=== PATIENT | female | born 1940 | race Two or more races ===

== ENCOUNTER 2017-07-01 08:57 | Outpatient (CLI) | payer OTHER ==
[~2017-07-01 08:57] MED LIST: CATAFLAM50 MG PO; DIOVAN160 M1 PO; KETO10TA2 PO; NAPR500T14 PO; NO RECUERDA; ORPH100T PO; PROCTOCREAM-HC30 GM RC; SYNTHROID50 MCG; ZOCOR20 MG PO; [UNRECOGNIZED DRUG - OTHER] PO
== END 2017-07-01 09:01 | disposition home or self-care (01) ==
LOC: MAMO-SONO 08:57
DX: Z12.31 Encounter for screening mammogram for malignant neoplasm of breast (principal); Z87.898 Personal history of other specified conditions; N60.11 Diffuse cystic mastopathy of right breast; N60.12 Diffuse cystic mastopathy of left breast; D49.3 Neoplasm of unspecified behavior of breast
CPT/HCPCS: 76641; G0202

== ENCOUNTER 2017-07-29 12:18 | Outpatient (CLI) | payer OTHER | END 2017-07-29 12:33 | disposition home or self-care (01) | LOC: SONOGRAMA 12:18 | DX: N63.11 Unspecified lump in the right breast, upper outer quadrant (principal) ==

== ENCOUNTER 2018-07-01 09:27 | Outpatient (CLI) | payer OTHER | END 2018-07-01 09:29 | disposition home or self-care (01) | LOC: MAMO-SONO 09:27 | DX: Z12.31 Encounter for screening mammogram for malignant neoplasm of breast (principal); Z87.898 Personal history of other specified conditions; D49.3 Neoplasm of unspecified behavior of breast; D48.61 Neoplasm of uncertain behavior of right breast; E04.1 Nontoxic single thyroid nodule; N60.11 Diffuse cystic mastopathy of right breast; N60.12 Diffuse cystic mastopathy of left breast ==

== ENCOUNTER 2018-08-21 07:30 | Outpatient (CLI) | payer OTHER | END 2018-08-21 07:31 | disposition home or self-care (01) | LOC: SONOGRAMA 07:30 | DX: E04.2 Nontoxic multinodular goiter (principal) ==

== ENCOUNTER 2018-11-07 10:29 | Outpatient (CLI) | payer OTHER | END 2018-11-07 10:48 | disposition home or self-care (01) | LOC: MRI 10:29 | DX: M51.27 Other intervertebral disc displacement, lumbosacral region (principal) | CPT/HCPCS: 72148 ==

== ENCOUNTER 2018-11-19 10:31 | Outpatient (CLI) | payer OTHER | END 2018-11-19 10:40 | disposition home or self-care (01) | LOC: NUCLEAR 10:31 | DX: M81.0 Age-related osteoporosis without current pathological fracture (principal) ==

== ENCOUNTER → 2019-03-31 10:31 | Outpatient (CLI) | payer OTHER | END | disposition home or self-care (01) | LOC: LAB 10:31 | DX: N20.0 Calculus of kidney (principal) ==

== ENCOUNTER 2019-04-03 12:38 | Outpatient (CLI) | payer OTHER | END 2019-04-03 12:42 | disposition home or self-care (01) | LOC: MRI 12:38 | DX: M51.36 Other intervertebral disc degeneration, lumbar region (principal); M25.551 Pain in right hip | CPT/HCPCS: 73722 ==

== ENCOUNTER 2019-06-10 09:25 | Outpatient (CLI) | payer OTHER | END 2019-06-10 09:41 | disposition home or self-care (01) | LOC: MRI 09:25 | DX: M25.562 Pain in left knee (principal); M25.561 Pain in right knee | CPT/HCPCS: 73721 ==

== ENCOUNTER → 2019-06-16 08:49 | Outpatient (CLI) | payer OTHER | END | disposition home or self-care (01) | LOC: LAB 08:49 → RAD 08:49 | DX: D68.8 Other specified coagulation defects (principal); E78.2 Mixed hyperlipidemia; N39.0 Urinary tract infection, site not specified; R07.89 Other chest pain; I10 Essential (primary) hypertension ==

== ENCOUNTER 2019-09-03 09:11 | Outpatient (CLI) | payer OTHER | END 2019-09-03 15:00 | disposition home or self-care (01) | LOC: LAB 09:11 → RAD 09:11 → LAB 09:20 | DX: D68.8 Other specified coagulation defects (principal); E78.2 Mixed hyperlipidemia; N39.0 Urinary tract infection, site not specified; R07.89 Other chest pain; I10 Essential (primary) hypertension ==

== ENCOUNTER 2019-09-03 10:03 | Inpatient (IN) | payer OTHER ==
[~2019-09-03] VITALS: Ht 167.6 cm; Wt 90.7 kg
[2019-09-15] MEDS ORDERED: LEVOTHYROXINE25 MCG PO (15:32)
[2019-09-21] MEDS ORDERED: VALSARTAN-HCTZ1 EAC2 PO (08:25)
== END 2019-09-23 13:15 | DRG 470 ==
LOC: O/R 09-21 06:02 → SURG 09-21 07:00
PROVIDERS: ADMIT Orthopaedic Surgery
PROC: 0SRD0J9 Replacement of Left Knee Joint with Synthetic Substitute, Cemented, Open Approach (ICD-10-PCS; principal; 2019-09-21 07:00)
DX: M17.12 Unilateral primary osteoarthritis, left knee (principal); D62 Acute posthemorrhagic anemia; E03.9 Hypothyroidism, unspecified; I11.9 Hypertensive heart disease without heart failure; I25.10 Atherosclerotic heart disease of native coronary artery without angina pectoris

== ENCOUNTER 2021-06-19 11:09 | Outpatient (CLI) | payer OTHER ==
[~2021-06-19 11:09] MED LIST changes: +LEVOTHYROXINE25 MCG PO; +VALSARTAN-HCTZ1 EAC2 PO
== END 2021-06-19 11:23 | disposition home or self-care (01) ==
LOC: MAMO-SONO 11:09
PROVIDERS: ATTEND Internal Medicine
DX: R92.0 Mammographic microcalcification found on diagnostic imaging of breast (principal); Z12.31 Encounter for screening mammogram for malignant neoplasm of breast; N60.11 Diffuse cystic mastopathy of right breast; N60.12 Diffuse cystic mastopathy of left breast

== ENCOUNTER 2021-07-31 10:59 | Outpatient (CLI) | payer OTHER | END 2021-07-31 11:05 | disposition home or self-care (01) | LOC: MRI 10:59 | PROVIDERS: ATTEND Psychiatry & Neurology Neurology | DX: G30.1 Alzheimer's disease with late onset (principal) | CPT/HCPCS: 70551 ==

== ENCOUNTER 2022-01-30 13:27 | Outpatient (CLI) | payer OTHER | END 2022-01-30 13:28 | disposition home or self-care (01) | LOC: NUCLEAR 13:27 | PROVIDERS: ATTEND Internal Medicine | DX: M81.0 Age-related osteoporosis without current pathological fracture (principal); Z88.2 Allergy status to sulfonamides ==

== ENCOUNTER 2022-08-20 11:58 | Outpatient (CLI) | payer OTHER | END 2022-08-20 12:05 | disposition home or self-care (01) | LOC: MAMO-SONO 11:58 | PROVIDERS: ATTEND Obstetrics & Gynecology | DX: N64.4 Mastodynia (principal); R10.2 Pelvic and perineal pain ==

== ENCOUNTER 2024-12-24 13:12 | Outpatient (CLI) | payer OTHER | END 2024-12-24 13:16 | disposition home or self-care (01) | LOC: MAMO-SONO 13:12 | PROVIDERS: ATTEND Internal Medicine | DX: N60.11 Diffuse cystic mastopathy of right breast (principal); N60.12 Diffuse cystic mastopathy of left breast; Z12.31 Encounter for screening mammogram for malignant neoplasm of breast ==

== ENCOUNTER 2024-12-30 13:05 | Outpatient (CLI) | payer OTHER | END 2024-12-30 13:06 | disposition home or self-care (01) | LOC: NUCLEAR 13:05 | PROVIDERS: ATTEND Internal Medicine | DX: M81.0 Age-related osteoporosis without current pathological fracture (principal) ==